=== PATIENT | male | born 1965 | race African-American/Black ===

== ENCOUNTER 2017-10-01 13:08 | Inpatient (IN) | payer MEDICAID ==
[~2017-10-01] VITALS: Ht 167.6 cm; Wt 83.6 kg
--- NOTE | ~2017-10-01 | EC ---
PATIENT:LINDSAY FOFANA DATE OF SERVICE: 10/01/17 SEX: M MEDICAL RECORD: [id number] DATE OF : 65 LOCATION:D.M2 D.213 AGE OF PATIENT: 51 ADMISSION DATE: 10/01/17 REFERRING PHYSICIAN: INTERPRETING PHYSICIAN: DEZ JETER MD ECHOCARDIOGRAM REPORT ECHO CHARGES 4 ECHO COMPLETE Date: 10/03 CLINICAL DIAGNOSIS: CHF ECHOCARDIOGRAPHIC MEASUREMENTS (adult normal given) AC root (d.<3.7cm) 3.0 cm LV Septum d (<1.2 cm> 1.5 cm Valve Excursion 2.2 cm LV Septum (systole) 2.3 cm Left Atria (s.<4.0cm> 3.9 cm LVPW d(<1.2cm) 2.0 cm RV (d.<2.3cm) 2.7 cm LVPW (sytole) 2.5 cm LV diastole(<5.6CM) 4.5 cm MV E-F(>70mm/sec) cm LV systole 2.4 cm LVOT Diameter 2.0 cm MV exc.(>10mm) cm Est.ejection fraction (50-75%) % DOPPLER: LVIT cm/sec A 83.0 cm/sec E 135 cm/sec LA cm/sec RVSP 37.3 mmHg LVOT 112 cm/sec AOP1/2T m/s Asc. Ao 189 cm/sec RVOT 74.0 cm/sec RA cm/sec PA 121 cm/sec AV Gradient Peak 14.3 mmHg AV Mean 6.0 mmHg AV Area 1.7 cm MV Gradient Peak 10.2 mmHg MV Mean 2.9 mmHg MV Area cm COMMENTS: Contact Center Assistant: Cherelle CASONOE Video Clerk: 3 Dr. Dupree TAPE# PACS Pericardial Effusion Y DATE OF SERVICE: 10/04/2017 PROCEDURE: Echocardiogram. FINDINGS: 1. Left ventricular chamber size is within normal limits. Left ventricular systolic function is normal. Overall ejection fraction estimated at 60%. 2. Left atrium, right atrium, and right ventricle chamber sizes are within normal limits. 3. Valvular structures have normal structure and motion. ECHOCARDIOGRAM REPORT [id number] LINDSAY FOFANA 4. Doppler interrogation reveals mild aortic insufficiency, mild mitral regurgitation, mild tricuspid regurgitation, no other valvular insufficiency or stenosis. Pulmonary systolic pressure is normal, estimated 37 mmHg, small pericardial effusion is present. This is not hemodynamically significant. No evidence of left ventricular thrombus. TRANSINT:[id number] Voice Confirmation ID: [id number] DOCUMENT ID: [id number] DEZ JETER MD at 1710 CC: [id number] DICTATION DATE: 10/04/17 1355 MATERIAL REQUISITIONER: 10/04/17 1426 ADM IN [id number] [place] [address]
--- NOTE | ~2017-10-01 | CN ---
PATIENT NAME:LINDSAY FOFANA MEDICAL RECORD: [id number] : 65 LOCATION:DAlex D.2135 ADMIT DATE: 10/01/17 ACCOUNT: [id number] CONSULTING PHYSICIAN: ROSLYN BALBUENA MD REFERRING PHYSICIAN: SVITLANA WEINSTEIN MD DATE OF CONSULTATION: 10/02/2017 HISTORY OF PRESENT ILLNESS: A 51-year-old gentleman with a history of hypertension, leukemia, diabetes mellitus, [facility] from [facility] with increasing shortness of breath by his report at least for the past 4-6 weeks, cough, not initially productive, some clear. No hemoptysis. Some orthopneic type symptomatology. He was sent in the ER, found to be anemic, elevated troponin, and some interstitial edema on chest x-ray. We are asked to see him concerning his cardiovascular status. PAST MEDICAL HISTORY: Includes; 1. History of hypertension. 2. Diabetes mellitus. 3. Leukemia. 4. Dyslipidemia. SOCIAL HISTORY: Currently in the correction center. He is a previous smoker, nondrinker. ALLERGIES: ACETAMINOPHEN. PHYSICAL EXAMINATION: GENERAL: Middle-aged black gentleman, mild respiratory distress. VITAL SIGNS: Blood pressure 139/94, pulse 83 and regular. HEENT: Normocephalic, atraumatic. NECK: No bruits noted. HEART: Regular. II/ systolic ejection murmur. LUNGS: Some expiratory wheezes. Fair to poor air movement. ABDOMEN: Soft, nontender. EXTREMITIES: Pulses 2+ with 1+ edema. NEUROLOGIC: Grossly intact. IMPRESSION: Difficult to fully interpret troponin in view of marked anemia and worsening renal insufficiency, suspect this may be a demand component secondary to the marked anemia. Agree with transfusion as you are doing. We will check echocardiographic study. Further recommendations based on the above. TRANSINT:[id number] Voice Confirmation ID: [id number] DOCUMENT ID: [id number] ROSLYN BALBUENA MD at 1114 CC: [id number] DICTATION DATE: 10/04/17 1359 PRACTICING DERMATOLOGIST: 10/04/17 1430 DIS IN 10/05/17 [place] [address]
[2017-10-01] MEDS ORDERED: MOBIC7.5 MG PO (13:16)
[2017-10-01] MEDS ORDERED: CATAPRES0.3 MG PO (13:16)
[2017-10-01] MEDS ORDERED: GLEEVEC400 MG PO (13:16)
[2017-10-01] MEDS ORDERED: ZYLOPRIM100 MG PO (13:17)
[2017-10-01] MEDS ORDERED: LASIX40 MG PO (13:17)
[2017-10-01] MEDS ORDERED: PREDNISONE5 MG PO (13:19)
[2017-10-01] MEDS ORDERED: SINGULAIR5 MG PO (13:19)
[2017-10-01] MEDS ORDERED: LEVEMIR100 U/M1 SC (13:20)
[2017-10-01 13:53] LABS: BASOPHILS 0 % (0-2); EOSINOPHILS 0.1 % (0-7); HEMATOCRIT 23.6 % (42.0-54.0); HEMOGLOBIN 7.6 g/dL (13.5-17.5); IMMATURE GRANULOCYTES 4.2 % (0-5); LYMPHOCYTES 2.5 % (15-50); MCH 23.8 pg (26.0-34.0); MCHC 32.2 g/dL (31.0-37.0); MCV 73.8 fL (80.0-100.0); MEAN PLATELET VOLUME 9.3 fL (7.4-10.4); NEUTROPHILS 90.2 % (40-80); PLATELET COUNT 232 10x3/uL (130-400); RDW 18.6 % (11.5-14.5)
[2017-10-01 14:10] LABS: ALBUMIN 3.1 g/dL (3.4-5.0); ALKALINE PHOSPHATASE 63 U/L (46-116); ALT (SGPT) 117 U/L (10-68); BILIRUBIN - TOTAL 0.31 mg/dL (0.2-1.3); CALC OSMOLALITY 286 mosm/kg (275-300); CALCIUM 8.6 mg/dL (8.5-10.1); CARBON DIOXIDE 26.2 mmol/L (21.0-32.0); CHLORIDE - SERUM 100 mmol/L (98-107); GLUCOSE 226 mg/dL (74-106); POTASSIUM - SERUM 4.6 mmol/L (3.5-5.1); PROTEIN - SERUM 6.4 g/dL (6.4-8.2); SODIUM 135 mmol/L (136-145); UREA NITROGEN 41 mg/dL (7-18); eGFR NON AFRICAN AMERICAN 24 mL/min (90-120)
[2017-10-01 14:26] LABS: CKMB 19.3 U/L (0.0-3.6); CREATINE KINASE 732 UL (21-232)
[2017-10-01] MEDS ORDERED: ASPIRIN81 MG PO (22:02)
[2017-10-01] MEDS ORDERED: HUMULIN 70100 UNIT/1 SC (22:04)
[2017-10-01 22:39] VITALS: BP 195/84; BMI 33.6
[2017-10-02] VITALS (9 sets, daily range): BP systolic 143–179; BP diastolic 50–79; Ht 167.6 cm; Wt 83.6 kg
[2017-10-02 16:24] LABS: CKMB 15.8 U/L (0.0-3.6); CREATINE KINASE 743 UL (21-232); TROPONIN-I 0.327 ng/mL (0.000-0.060)
[2017-10-02 22:05] LABS: CKMB 15.6 U/L (0.0-3.6); CREATINE KINASE 755 UL (21-232)
[2017-10-02 22:07] LABS: TROPONIN-I 0.381 ng/mL (0.000-0.060)
[2017-10-03] VITALS: BP 133/66
[2017-10-03 03:14] LABS: BASOPHILS 0 % (0-2); EOSINOPHILS 1.2 % (0-7); HEMATOCRIT 25.9 % (42.0-54.0); HEMOGLOBIN 8.6 g/dL (13.5-17.5); IMMATURE GRANULOCYTES 0.4 % (0-5); LYMPHOCYTES 12.7 % (15-50); MCH 24.7 pg (26.0-34.0); MCHC 33.2 g/dL (31.0-37.0); MCV 74.4 fL (80.0-100.0); MEAN PLATELET VOLUME 9.3 fL (7.4-10.4); MONOCYTES 13.7 % (2-11); PLATELET COUNT 208 10x3/uL (130-400); RBC 3.48 10x6/uL (4.20-6.10); RDW 18.6 % (11.5-14.5); WBC 9.8 10x3/uL (4.8-10.8)
[2017-10-03 03:52] LABS: CALCIUM 8.1 mg/dL (8.5-10.1); CARBON DIOXIDE 28.5 mmol/L (21.0-32.0); CHLORIDE - SERUM 106 mmol/L (98-107); CHOL - HDL RATIO 2.4 ratio (2.3-4.9); CHOLESTEROL, TOTAL 121 mg/dL (0-200); CKMB 15.4 U/L (0.0-3.6); CREATINE KINASE 726 UL (21-232); CREATININE - SERUM 2.3 mg/dL (0.6-1.3); HDL CHOLESTEROL 50 mg/dL (32-96); LDL CHOLESTEROL 57 mg/dL (0-100); LDL-HDL RATIO 1.1 ratio (1.5-3.5); POTASSIUM - SERUM 4.5 mmol/L (3.5-5.1); SODIUM 138 mmol/L (136-145); TRIGLYCERIDE 73 mg/dL (30-200); UREA NITROGEN 36 mg/dL (7-18); eGFR NON AFRICAN AMERICAN 32 mL/min (90-120)
[2017-10-03 03:54] LABS: CALC OSMOLALITY 286 mosm/kg (275-300); GLUCOSE 152 mg/dL (74-106); TROPONIN-I 0.343 ng/mL (0.000-0.060)
[2017-10-03 04:00] VITALS: BP 151/65
[2017-10-03 08:29] VITALS: BP 169/80
[2017-10-03 11:17] LABS: APPEARANCE CLEAR (CLEAR); BILIRUBIN NEGATIVE (NEGATIVE); COLOR YELLOW (YELLOW); GLUCOSE NEGATIVE (NEGATIVE); KETONE NEGATIVE (NEGATIVE); NITRITE NEGATIVE (NEGATIVE); PROTEIN 1+ mg/dL (NEGATIVE); UROBILINOGEN NORMAL (NORMAL)
[2017-10-03 11:20] LABS: WHITE CELLS - URINE 0-5 /hpf (0-5)
[2017-10-03 11:21] LABS: BACTERIA FEW /hpf (NONE SEEN); EPITHELIAL CELLS 0-5 /hpf (0-5)
[2017-10-03 11:37] VITALS: BP 170/82
[2017-10-03 15:37] VITALS: BP 160/80
[2017-10-03 20:53] VITALS: BP 148/65
[2017-10-04 01:31] VITALS: BP 156/75
[2017-10-04 06:06] VITALS: BP 175/71
[2017-10-04 06:09] LABS: BASOPHILS 0 % (0-2); EOSINOPHILS 3.5 % (0-7); HEMATOCRIT 27.8 % (42.0-54.0); HEMOGLOBIN 9.1 g/dL (13.5-17.5); IMMATURE GRANULOCYTES 0.1 % (0-5); LYMPHOCYTES 21.1 % (15-50); MCH 24.3 pg (26.0-34.0); MCHC 32.7 g/dL (31.0-37.0); MCV 74.3 fL (80.0-100.0); MEAN PLATELET VOLUME 9.5 fL (7.4-10.4); MONOCYTES 17.7 % (2-11); NEUTROPHILS 57.6 % (40-80); PLATELET COUNT 224 10x3/uL (130-400); RBC 3.74 10x6/uL (4.20-6.10); RDW 18.9 % (11.5-14.5)
[2017-10-04 06:18] LABS: ANION GAP 10.5 mmol/L (8-16); CALCIUM 8.1 mg/dL (8.5-10.1); CARBON DIOXIDE 28.4 mmol/L (21.0-32.0); CREATININE - SERUM 2.5 mg/dL (0.6-1.3); POTASSIUM - SERUM 3.9 mmol/L (3.5-5.1)
[2017-10-04 06:24] LABS: WBC 6.9 10x3/uL (4.8-10.8)
[2017-10-04 07:54] VITALS: BP 139/94
[2017-10-04 10:57] VITALS: BP 133/88
[2017-10-04 16:38] VITALS: BP 189/92
[2017-10-04 19:00] VITALS: BP 167/78
[2017-10-05 01:39] VITALS: BP 166/83
[2017-10-05 04:00] VITALS: BP 166/87
[2017-10-05 05:36] LABS: BASOPHILS 0 % (0-2); EOSINOPHILS 5.4 % (0-7); HEMATOCRIT 29.4 % (42.0-54.0); HEMOGLOBIN 9.6 g/dL (13.5-17.5); IMMATURE GRANULOCYTES 0.2 % (0-5); LYMPHOCYTES 23.2 % (15-50); MCH 24.4 pg (26.0-34.0); MCHC 32.7 g/dL (31.0-37.0); MCV 74.8 fL (80.0-100.0); MEAN PLATELET VOLUME 9.6 fL (7.4-10.4); MONOCYTES 17.9 % (2-11); NEUTROPHILS 53.3 % (40-80); PLATELET COUNT 216 10x3/uL (130-400); RBC 3.93 10x6/uL (4.20-6.10); RDW 19.2 % (11.5-14.5); WBC 5.7 10x3/uL (4.8-10.8)
[2017-10-05 05:41] LABS: ANION GAP 10.2 mmol/L (8-16); CALCIUM 8.5 mg/dL (8.5-10.1); CARBON DIOXIDE 27.9 mmol/L (21.0-32.0); CREATININE - SERUM 2.3 mg/dL (0.6-1.3); POTASSIUM - SERUM 4.1 mmol/L (3.5-5.1)
[2017-10-05 07:40] VITALS: BP 143/70
[2017-10-05 10:54] VITALS: BP 136/77
[2017-10-05] MEDS ORDERED: LEVAQUIN500 MG PO (13:32)
[2017-10-05] MEDS ORDERED: COREG12.5 MG PO (13:32)
[2017-10-05] MEDS ORDERED: NORVASC10 MG PO (13:32)
[2017-10-05] MEDS ORDERED: FLUTICASONE PRO16 GM NASAL (13:33)
[2017-10-05] MEDS ORDERED: PROTONIX40 MG PO (13:33)
== END 2017-10-05 18:28 | DRG 682 ==
LOC: EDSEX 13:08 → D.ER 13:08 → D.M2 17:45
PROVIDERS: Family Medicine; Internal Medicine Nephrology
DX: N17.9 Acute kidney failure, unspecified (principal); J12.9 Viral pneumonia, unspecified; I24.8 Other forms of acute ischemic heart disease; C92.10 Chronic myeloid leukemia, BCR/ABL-positive, not having achieved remission; J40 Bronchitis, not specified as acute or chronic; D50.9 Iron deficiency anemia, unspecified; I10 Essential (primary) hypertension; E11.9 Type 2 diabetes mellitus without complications; K21.9 Gastro-esophageal reflux disease without esophagitis

== ENCOUNTER 2020-06-29 05:29 | Day surgery (SDC) | payer OTHER ==
[~2020-06-29] VITALS: Ht 167.6 cm; Wt 86.4 kg
[~2020-06-29 05:29] MED LIST: ASPIRIN81 MG PO; CATAPRES0.3 MG PO; COREG12.5 MG PO; FLUTICASONE PRO16 GM NASAL; GLEEVEC400 MG PO; HUMULIN 70100 UNIT/1 SC; LASIX40 MG PO; LEVAQUIN500 MG PO; LEVEMIR100 U/M1 SC; MOBIC7.5 MG PO; NORVASC10 MG PO; PREDNISONE5 MG PO; PROTONIX40 MG PO; SINGULAIR5 MG PO; ZYLOPRIM100 MG PO
[2020-06-29] MEDS ORDERED: NOVOLIN 70/30 110 ML SC ×5 (07:09→07:23)
[2020-06-29] MEDS ORDERED: HUMULIN 70100 UNIT/1 SC ×4 (07:11→07:14)
[2020-06-29 07:24] LABS: BASOPHILS 0.2 % (0-2); EOSINOPHILS 1.6 % (0-7); HEMATOCRIT 37.8 % (42.0-54.0); HEMOGLOBIN 12.1 g/dL (13.5-17.5); IMMATURE GRANULOCYTES 0.3 % (0-5); LYMPHOCYTES 20.7 % (15-50); MCH 29.4 pg (26.0-34.0); MEAN PLATELET VOLUME 9.5 fL (7.4-10.4); MONOCYTES 15.2 % (2-11); RBC 4.11 10x6/uL (4.20-6.10); RDW 17.3 % (11.5-14.5); WBC 5.8 10x3/uL (4.8-10.8)
[2020-06-29] MEDS ORDERED: SINGULAIR10 MG PO (07:24)
[2020-06-29] MEDS ORDERED: LASIX80 MG PO (07:26)
[2020-06-29] MEDS ORDERED: PROCARDIA XL60 MG PO (07:27)
[2020-06-29] MEDS ORDERED: COZAAR50 MG PO (07:27)
[2020-06-29] MEDS ORDERED: ZOCOR20 MG PO (07:28)
[2020-06-29] MEDS ORDERED: RENAGEL800 MG PO (07:29)
[2020-06-29] MEDS ORDERED: MAG-OX 400 MG400 MG PO (07:29)
[2020-06-29] MEDS ORDERED: NEURONTIN600 MG PO (07:31)
[2020-06-29] MEDS ORDERED: FERROUS SULFAT325 MG PO (07:32)
[2020-06-29] MEDS ORDERED: VITAMIN D325 MC1 PO (07:32)
[2020-06-29 07:33] LABS: PLATELET COUNT 149 10x3/uL (130-400)
[2020-06-29 07:36] LABS: ALBUMIN 4.3 g/dL (3.4-5.0); ANION GAP 15.5 mmol/L (8-16); BILIRUBIN - TOTAL 0.4 mg/dL (0.2-1.3); CARBON DIOXIDE 22.1 mmol/L (21.0-32.0); CREATININE - SERUM 8.2 mg/dL (0.6-1.3); POTASSIUM - SERUM 4.6 mmol/L (3.5-5.1); PROTEIN - SERUM 8.7 g/dL (6.4-8.2)
[2020-06-29 07:49] VITALS: Ht 167.6 cm; Wt 86.4 kg
--- NOTE | 2020-06-29 08:32 | NUR ---
0753 PT STATES HE HAD 1 CUP OF BROTH @ 0230 THIS AM PLUS AM MEDS. DR. PEREIRA INFORMED. STATES PT WILL BE OKAY FOR SEDATION/COLONOSCOPY. Larisa THOMSON R.N.
--- NOTE | 2020-06-29 10:40 | NUR ---
1025 IV DC'ED WITH CATH INTACT & 500ML LTC. DRESSING. ADC GUARDS X'S 2 @ BEDSIDE. Larisa THOMSON R.N. 1035 DRESSED, AWAKE & ALERT. PROVIDED WITH COPIES OF EKG, LABWORK, H&P, PROGRESS NOTE, & OP NOTE. MED REC REVIEWED WITH PATIENT WELL SHEET LISTING NSAIDS TO AVOID FOR 10 DAYS. [facility]OSCOPY D/C INSTRUCTIONS REVIEWED. PT VOICED UNDERSTANDING. RELEASED VIA OWN WHEELCHA[facility] ADC GUARD. TO [facility] FOR TRANSPORT BACK TO [facility]. Larisa THOMSON R.N.
--- NOTE | 2020-06-29 10:45 | OP ---
PATIENT NAME: LINDSAY FOFANA MEDICAL RECORD: [id number] :65 LOCATION:D.OPS ADMISSION DATE: SURGEON: NYDIA ANDREW MD DATE OF OPERATION: 06/29/2020 PREOPERATIVE DIAGNOSIS: History of colon polyps, in need of surveillance colonoscopy. POSTOPERATIVE DIAGNOSES: 1. History of colon polyps, in need of surveillance colonoscopy. 2. New 7 mm sessile polyp in the ascending colon. PROCEDURES: 1. Total colonoscopy to cecum. 2. Hot biopsy forceps polypectomy x1. SURGEON: Nydia Andrew MD TOOL AND DIE DESIGNER: None. BLOOD LOSS: Minimal. ANESTHESIA: IV sedation. COMPLICATIONS: None. DESCRIPTION OF PROCEDURE: The patient was conveyed to the endoscopy suite electively on 06/29/2020. IV sedation was induced by the anesthesia staff. The patient was placed in the Ibrahim position. Digital rectal examination was performed. A colonoscope was inserted through the anus. It was easily advanced to the cecum. The prep was inadequate. I slowly withdrew the endoscope. The pullback was greater than 30-minute pullback. I irrigated and aspirated extensively. A combination of normal imaging and narrow band imaging were utilized. A single hot biopsy forceps polypectomy was performed in the ascending colon. The polyp was removed in its entirety and was retrieved. A retroflexed view was obtained in the rectum. I then unretroflexed the scope and removed it under direct vision. As the patient is ASA IV, it is appropriate for him to be done in the hospital in the future just as he was done this time. His next surveillance colonoscopy should take place in 3 years, that would be June of 2023, unless he develops new symptoms. There is no need for him to follow up with me in the office unless he develops a complication related to this operative procedure. If he needs to see me as an outpatient, I could see him at the GI clinic out at the [facility] during one of my GI days. TRANSINT:[id number] Voice Confirmation ID: [id number] DOCUMENT ID: [id number] OPERATIVE REPORT [id number] LINDSAY FOFANA ROBERT MD at 1045 CC: AKILA RIZVI MD and TERRY SNYDER [id number] DICTATION DATE: 06/29/20 0951 COMPRESSED AIR PILE DRIVER OPERATOR: 06/29/20 1017 DEP SDC 06/29/20 [facility] [address] [place] [address]
--- NOTE | 2020-06-29 10:45 | HP ---
PATIENT: LINDSAY FOFANA MEDICAL RECORD: [id number] ACCOUNT: [id number] LOCATION:[place] : 65 ADMISSION DATE: 06/29/20 PCP: No PCP HISTORY AND PHYSICAL EXAMINATION HISTORY: The patient has a history of colon polyps, underwent a colonoscopy last year. He is here for surveillance colonoscopy today. He has had no rectal bleeding. No abdominal pain. Does have dark stools, but the patient is on iron. MEDICINES AT ALF: Reviewed. ALLERGIES: Reviewed. SOCIAL HISTORY: Nonsmoker. PAST MEDICAL AND SURGICAL HISTORY: Bronchitis; coronary artery disease; hypertension; angina; history of myocardial infarction; insulin-dependent diabetes mellitus; end-stage renal disease on dialysis Sunday, Sunday, Sunday; history of leukemia; history of arteriovenous fistula procedure. PHYSICAL EXAMINATION: GENERAL: The patient does not appear acutely ill. He does appear chronically ill. VITAL SIGNS: Reviewed. EARS: External ears appear normal. EYES: Extraocular movements are intact. NECK: Trachea is midline. CHEST: No intercostal retractions. PULMONARY: Nonlabored. No stridor. IMPRESSION: History of colon polyps. PLAN: Surveillance colonoscopy. TRANSINT:[id number] Voice Confirmation ID: [id number] DOCUMENT ID: [id number] 06/29/2020 Edited to add kiara penaloza. NYDIA ANDREW MD at 1045 CC: AKILA RIZVI MD and TERRY SNYDER [id number] DICTATION DATE: 06/29/20 0914 HAM STRINGER: 06/29/20 0939 [facility] 06/29/20 [address] [place] [address]
== END 2020-06-29 10:35 ==
LOC: D.OPS 05:29
PROVIDERS: Anesthesiology; ATTEND Surgery
DX: Z86.010 Personal history of colon polyps (principal); Z12.11 Encounter for screening for malignant neoplasm of colon; K63.5 Polyp of colon; I10 Essential (primary) hypertension; I25.10 Atherosclerotic heart disease of native coronary artery without angina pectoris; I25.2 Old myocardial infarction; N18.6 End stage renal disease; Z99.2 Dependence on renal dialysis; E11.9 Type 2 diabetes mellitus without complications; Z79.4 Long term (current) use of insulin